=== PATIENT | male | born 1995 | race Caucasian/White ===

== ENCOUNTER 2019-01-22 08:11 | Emergency (ER) | payer OTHER, SELFPAY ==
[2019-01-22 08:14] VITALS: BP 123/82; PULSE 95; RESP 17; TEMP 36.8; O2SAT 98; BMI 29.5
--- NOTE | 2019-01-22 08:23 | ED.DCSUM_ITS ---
History of Present Illness Chief Complaint: Back Informant: Patient Onset: Hours - 1 Context: Sudden Onset - bent over while in shower Injury: Bending Timing: Continuous Quality: Aching Location: Lumbar Current Severity: Severe Maximum Severity: Severe Worsened by: improves with: Movement, Ambulation - especially w/ RLE weight- bearing, Bending Relieved by: Remaining Still Associated Symptoms: - - [place] discomfort radiating into buttocks, and some tingling in his proximal thighs but that is gone; no radiation of pain to the knees or distal. No bowel or bladder dysfunction. No recent injury otherwise. Narrative: Patient has a history of pains in his low back, he has seen a chiropractor several times for it and they have suggested it is mostly muscular. He has never needed prescription medication or advanced imaging of his back. He has never had pain quite this severe. He states that the pain occurred fairly suddenly and severely and felt like something was really wrong like he felt a pop when it happened or something. No abdominal discomfort or syncope or other systemic symptoms. Able to walk. Past Medical History - Allergies and Home Meds Allergies/Adverse Reactions: Allergies No Known Allergies Allergy (Verified 01/22/19 08:12) Primary Care Physician: Care Physician,No Primary [Primary Care Provider] - Past Medical History: None Lives: Spouse/ Significant Other Smoking Status: Never smoker Review of Systems Gastrointestinal: Denies: Nausea, Vomiting Musculoskeletal: Reports: Back pain. Denies: Neck pain, Swelling, Extremity Pain Neurological: Denies: Headache, Weakness, Numbness Physical Exam Vital Signs/Narrative: Vital Signs Temp Pulse Resp BP Pulse Ox 01/22/19 08:14 98.2 F 95 17 123/82 H 98 Inital Vital Signs reviewed: Yes General: Well nourished, Well developed Head: Normocephalic, Atraumatic Back: Normal Inspection, Nontender, Negative SLR - Right - increases back pain only, Negative SLR - Left - no sx. Negative for: Spinal tenderness, Paraspinal Tenderness Extremeties: Nontender, No edema, Strong Pulses Skin: Normal color, No rash, No Trauma Neuro: Alert, Oriented, Normal Strength, Normal Sensation, Normal Reflexes - w/ no clonus and toes are downgoing. Negative for: Normal Gait - antalgic, but otherwise normal Psychological: Normal affect, Normal Mood Diagnostic/Tx/Re-eval Clinical Impression(s) from Imaging Studies Lumbar Spine X-Ray 01/22/19 08:53 IMPRESSION: No acute displaced fracture, or traumatic subluxation based on current assessment. Electronically Signed: Hair Bray MD at 9:17 EDT Tel [phone], Service support , - Medical Decision Making Patient was initially treated with Toradol and Norflex. X-rays were obtained and unremarkable, upon return he was lying comfortably with his hands behind his head saying that his pain was still very severe. He was given an injection of morphine but I think he is stable to be discharged home. I see no evidence of disc height shortening on x-ray, and clinically he has no findings of radicular abnormalities on exam, and has no symptoms of radiculopathy. At this time supportive care and close outpatient follow-up advised. We will write him a short course of [place] and NSAID. Patient without PCP. Referred to the next physician on the unassigned list. ED Disposition - Plan for ED Patient: Disposition: Home or Assisted Living Diagnosis: Acute lumbosacral myofascial strain Instructions: Back Sprain/Strain Prescriptions: Naproxen [Naprosyn] 500 mg PO BID PRN #20 tab Transmission Status: Pending to [id number] Hydrocodone Bitart/Apap 5-325 [[place] 5MG-325MG] 1 tablet PO Q4H PRN PRN 2 Days #10 tablet PRN Reason: Pain Transmission Status: Received by [id number] Referrals: Dawson Guzmán MD [STAFF PHYSICIAN] - 1 Week if not improving
[2019-01-22] MEDS: Ketorolac 60 MG/2 ML Vial IM (08:49)
[2019-01-22] MEDS: Orphenadrine 60 MG/2 ML Ampul IM (08:49)
--- NOTE | 2019-01-22 08:53 | RAD_ITS ---
STUDY: X-RAY - LUMBAR SPINE REASON FOR EXAM: Male, 23 years old. Injury TECHNIQUE: 3 view(s) of the lumbar spine were obtained. COMPARISON: None FINDINGS: Normal lumbar lordosis. There is no substantial scoliosis. There is a normal alignment of the vertebrae. Intact vertebral bodies and endplates. Normal disc space heights. There is no demonstrated fracture. There is no demonstrated spondylolysis of the pars interarticulares. The soft tissue structures are unremarkable. RAD/Lumbar Spine 2 or 3 Views IMPRESSION: No acute displaced fracture, or traumatic subluxation based on current assessment. Electronically Signed: Hair Bray MD at 9:17 EDT Tel [phone], Service support ,
[2019-01-22] MEDS: Morphine 4 MG/ML Syringe SC (09:42)
== END 2019-01-22 10:21 | disposition home or self-care (01) ==
PROVIDERS: Emergency Provider Emergency Medicine
DX: S39.012A Strain of muscle, fascia and tendon of lower back, initial encounter (principal); X58.XXXA Exposure to other specified factors, initial encounter; Y93.E1 Activity, personal bathing and showering
CPT/HCPCS: 72100; 96372; 99282